=== PATIENT | male | born 2000 | race Caucasian/White ===

== ENCOUNTER 2020-09-01 22:02 | Emergency (ER) | payer OTHER ==
[~2020-09-01] VITALS: Ht 180.3 cm; Wt 70.0 kg
--- NOTE | 2020-09-01 22:18 | NUR ---
BIBA. PT SWALLOWED 4 IBUPROFENS AND SUDAFED. APPEARS TO BE STUCK IN ESOPHAGUS. BREATHING EVEN AND UNLABORED. ATTACHED TO MONITORS. VSS. PT IN NAD. PT DRINKING SPRITE AND SPITTING UP TO GET MEDICATIONS OUT. CALL LIGHT WITHIN REACH
--- NOTE | 2020-09-01 22:22 | NUR ---
Note nikunjone in ED - 09/01/20 at 2226 by [email or web address] PT RESTING IN BD. PT IN NAD.
[2020-09-01] MEDS ORDERED: GLUCAGON 1 MG IVPush ONE (22:30)
[2020-09-01] MEDS ORDERED: ONDANSETRON 2MG/ML, 2ML IVPush ONE (22:30)
[2020-09-01] MEDS ORDERED: GLUCAGON 1 MG ONE (22:31)
[2020-09-01] MEDS ORDERED: ONDANSETRON 2MG/ML, 2ML ONE (22:31)
[2020-09-02] MEDS ORDERED: NITROGLYCERIN SINGLE TAB 0.4 MG SL ONE (00:18)
[2020-09-02] MEDS ORDERED: SODIUM CHLORIDE 0.9% 1,000ML IVBOLUS ONE (00:30)
[2020-09-02] MEDS ORDERED: NITROGLYCERIN 0.4 MG BOTTLE (25 TABS) SL ONE (00:30)
--- NOTE | 2020-09-02 00:56 | NUR ---
pt medicated per emar, pt given sprite to sip and pt made swallowing motions and then shortly after pt spit it up. pt is burping as well. vss, pt on monitors. erp aware and stated to give medication time to work.
[2020-09-02] MEDS ORDERED: METOCLOPRAMIDE 5 MG/ML, 2ML ONE (01:59)
--- NOTE | 2020-09-02 02:23 | NUR ---
Pt with episode of non responsiveness, o2 sat 78%, shallow breathing and lethargic. Stimulated pt, slow to repond states "I have insomnia", o2 sat back up to 95%RA. Obtaining urine sample. Dr Milner informed.
[2020-09-02] MEDS ORDERED: METOCLOPRAMIDE 5 MG/ML, 2ML IVPush ONE (02:30)
[2020-09-02 02:45] LABS: BASOPHILS % (AUTO) 1 % (0-1); EOSINOPHILS % (AUTO) 1 % (1-7); LYMPHOCYTES % (AUTO) 20 % (22-44); MEAN CORPUSCULAR HEMOGLOBIN 30.2 pg (27.5-34.5); MEAN CORPUSCULAR HGB CONC 34.5 g/dL (33.2-36.2); MEAN PLATELET VOLUME 8.5 fL (7.4-10.4); MONOCYTES % (AUTO) 6 % (2-9); NEUTROPHILS % (AUTO) 73 % (42-75); PLATELET COUNT 296 x10^3/uL (130-400); RED BLOOD COUNT 5.49 x10^6/uL (4.38-5.82); RED CELL DISTRIBUTION WIDTH 12.7 % (9.4-14.8)
[2020-09-02 02:46] LABS: MD NO
[2020-09-02 02:54] LABS: AMPHETAMINE SCREEN, URINE Negative (Negative); BARBITURATE SCREEN, URINE Negative (Negative); BENZODIAZEPINE SCREEN, URINE Negative (Negative); CANNABINOID SCREEN, URINE Negative (Negative); COCAINE SCREEN, URINE Negative (Negative); METHADONE SCREEN, URINE Negative (Negative); OPIATE SCREEN, URINE Negative (Negative)
[2020-09-02 02:56] LABS: ALANINE AMINOTRANSFERASE 20 U/L (12-78); ALBUMIN 4.5 g/dL (3.4-5.0); ANION GAP 8 mmol/L (5-15); CALCIUM 9.1 mg/dL (8.5-10.1); CHLORIDE 110 mmol/L (98-107); CREATININE 1.16 mg/dL (0.7-1.3)
[2020-09-02 02:58] LABS: ALKALINE PHOSPHATASE 86 U/L (45-117); BILIRUBIN,TOTAL 0.8 mg/dL (0.2-1.0); TOTAL PROTEIN 7.6 g/dL (6.4-8.2)
[2020-09-02] MEDS ORDERED: PROPOFOL 10 MG/ML, 20ML ONE ×2 (04:43→05:29)
[2020-09-02] MEDS ORDERED: PROPOFOL 10 MG/ML, 20ML IVPush ONE (05:00)
--- NOTE | 2020-09-02 05:05 | NUR ---
erp contacted gi, pt to have endoscopy, pt set up in trauma 2
--- NOTE | 2020-09-02 06:02 | NUR ---
pt given procedural sedation, pt tolerated well, foreign body pushed down to stomach, pt awake and speaking in full sentences and laughing. pt states feeling much better, no drooling or nausea
--- NOTE | 2020-09-02 06:12 | NUR ---
see sedation papers for vitals and interprocedure notes
--- NOTE | 2020-09-02 06:31 | NUR ---
35 MG OF PROPOFOL WASTED WITH D[place] CISNEROS. PT RECIEVED 165 MG PROPOFOL TOTAL DURING PROCEDURE. ONE BOTTLE OF PROPOFOL RETURNED
[2020-09-02 06:57] VITALS: BP 115/76
== END 2020-09-02 07:00 | disposition home or self-care (01) ==
LOC: ED 22:32
DX: T18.198A Other foreign object in esophagus causing other injury, initial encounter (principal); X58.XXXA Exposure to other specified factors, initial encounter; Y93.89 Activity, other specified; Y92.89 Other specified places as the place of occurrence of the external cause; Y99.8 Other external cause status
CPT/HCPCS: 36415; 43247; 80053; 80307; 80320; 85025; 96361; 96374; 96375; 99285; J1610; J2405; J2765; J7030; G0480